=== PATIENT | female | born 1940 | race Caucasian/White ===

== ENCOUNTER 2023-12-08 14:46 | Emergency (ER) | payer MEDICARE ==
[~2023-12-08] VITALS: Ht 167.6 cm; Wt 67.1 kg
[2023-12-08 15:12] VITALS: O2SAT 98
[2023-12-08] MEDS ORDERED: CHONDROITIN PO (15:23)
[2023-12-08] MEDS ORDERED: [UNRECOGNIZED DRUG - CODE] PO (15:23)
[2023-12-08] MEDS ORDERED: OXYCODONE/APAP 5-325 MG TABLET ONE (15:39)
[2023-12-08] MEDS: OXYCODONE/APAP 5-325 MG TABLET PO ONE (15:41)
[2023-12-08] MEDS ORDERED: HYDR-3976 PO (17:15)
[2023-12-08 17:26] VITALS: BP 139/78
== END 2023-12-08 17:27 | disposition home or self-care (01) ==
LOC: ER 14:46
DX: S32.19XA Other fracture of sacrum, initial encounter for closed fracture (principal); S62.101A Fracture of unspecified carpal bone, right wrist, initial encounter for closed fracture; S00.83XA Contusion of other part of head, initial encounter; Z79.899 Other long term (current) drug therapy; W22.8XXA Striking against or struck by other objects, initial encounter; Y93.89 Activity, other specified; Y92.89 Other specified places as the place of occurrence of the external cause; Y99.8 Other external cause status
CPT/HCPCS: 70450; 72125; 72170; 72220; 73110; A4606; A4663